=== PATIENT | male | born 1980 ===

== ENCOUNTER 2017-07-25 20:06 | Observation (INO) | payer OTHER ==
[2017-07-25] MEDS ORDERED: Adacel (T-DAP) 0.5 ML VIAL ONE (20:21)
[2017-07-25] MEDS ORDERED: ceFAZolin Sodium 1 GM VIAL ONE (20:21)
--- NOTE | 2017-07-25 20:58 | CT ---
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 FINDINGS: No focal mass or midline shift. No intra or extra-axial hemorrhage. Sinuses and mastoids are clear. IMPRESSION: No acute intracranial process. No mass or bleed. POS: [facility]
--- NOTE | 2017-07-25 21:02 | CT ---
CERVICAL SPINE CT SCAN WITHOUT IV CONTRAST: 07/26/17 HISTORY: 37-year-old male with neck injury following being struck with a steel cable. Multilevel disc osteophytosis changes are noted, particularly at C3-C4, C4-C5 and C5-C6 with some mu ltilevel variable severity canal and lateral recess stenosis, mostly mild to moderate. No evidence f or an acute fracture or facet dislocation. IMPRESSION: Cervical spondylosis. No acute fracture or facet dislocation. POS: [facility]
[2017-07-25] MEDS ORDERED: Lidocaine 1% (PF) 30 ML VIAL ONE (21:39)
--- NOTE | 2017-07-25 21:42 | CT ---
FACIAL BONE CT SCAN WITHOUT IV CONTRAST: 07/25/17 HISTORY: 37-year-old male with facial laceration from a steel cable. There are several small punctate foci of gas within the left neck soft tissues posterior to the left submaxillary gland and anterior and medial to the left sternocleidomastoid muscle. This is presumab ly from or associated with the history of laceration. There is some small jugulodigastric and submen kimani lymph nodes. There is some slight deformity of the right nasal bone which has more the appearanc e of an old fracture, although clinical correlation in regards to an acute fracture is suggested. Ra diographically, this appears more likely old with some mild residual deformity. No evidence of other acute facial bone fracture. The orbits appear unremarkable. The zygomatic arches are unremarkable. The mandible is intact. IMPRESSION: Subtle tiny punctate areas of gas or air in the left neck, presumably related to the history of a la ceration. Slight nasal bone deformity having more the appearance of old right sided nasal bone fract ure. There is some multiple small opacities which appear to overlie the face, lips, and nasal cavity . No evidence for soft tissue neck mass or abnormal fluid collection within the neck. POS: [facility]
[2017-07-25 21:48] LABS: #Basophils 0.1 thou/uL (0.0-0.2); #Eosinphils 0.2 thou/uL (0.0-0.7); #Lymphocytes 3.1 thou/uL (1.20-3.40); #Monocytes 0.7 thou/uL (0.11-0.59); #Neutrophils 7.2 thou/uL (1.40-6.50); %Basophils 0.8 % (0.0-1.0); %Eosinophils 1.6 % (0.0-10.0); %Lymphocytes 27.3 % (21.0-51.0); %Monocytes 6.4 % (0.0-10.0); Mean Platelet Volume 8.8 fL (7.4-10.4); Red Blood Cell (RBC) Count 4.84 mill/uL (4.70-6.10); White Blood Cell (WBC) Count 11.3 thou/uL (4.8-10.8)
[2017-07-25 21:56] LABS: Anion Gap 13 mmol/L (10-20); BUN (Urea Nitrogen) 18 mg/dL (8.9-20.6); Calc. Creatinine Clearance 0 mL/min (70-130); Calcium 8.8 mg/dL (7.8-10.44); Carbon Dioxide 24 mmol/L (22-29); Chloride 106 mmol/L (98-107); Estimated GFR-MDRD 58
--- NOTE | 2017-07-25 21:58 | RAD ---
RIGHT FEMUR TWO VIEWS: 07/25/17 HISTORY: 37-year-old male with trauma to right leg and right leg avulsion. There is some extensive soft tissue injury to the lateral aspect of the mid thigh. No acute fracture or dislocation of the femur. Numerous opacities overlie the superior and lateral aspect of the pelv is and right hip and right buttock. IMPRESSION: Extensive soft tissue injury to the anterolateral aspect of the right mid thigh. No fracture or disl ocation. Extensive opacities overlie the region to the lateral aspect of the right pelvis and right hip greater trochanteric region. POS: [facility]
[2017-07-25] MEDS ORDERED: Fentanyl 100 MCG/2 ML VIAL ONE (22:25)
[2017-07-25] MEDS ORDERED: Piperacillin/Tazobactam 3.375 GM VIAL ONE (22:29)
[2017-07-25] MEDS ORDERED: Succinylcholine Chloride 20 MG/ML 10 ml SYRINGE FS ONE (22:43)
[2017-07-25] MEDS ORDERED: Propofol 200 MG/20 ML VIAL ONE (22:43)
[2017-07-25] MEDS ORDERED: Ondansetron HCl/PF 4 MG/2 ML Vial ONE (22:43)
[2017-07-25] MEDS ORDERED: Ketorolac Tromethamine 30 MG/ML VIAL ONE (22:43)
[2017-07-25] MEDS ORDERED: Dexamethasone 20 MG/5 ML VIAL ONE (22:43)
[2017-07-25] MEDS ORDERED: Lidocaine 2% PF 10 ML AMP (For Epidural Use) ONE (22:43)
[2017-07-25] MEDS ORDERED: PHENYLEPHRINE-NS 100 MCG/ML 10 ML SYRINGE ONE ×2 (22:43)
[2017-07-25] MEDS ORDERED: Bupivacaine/Epinephrine 0.5% 10 ML VIAL ONE (22:59)
[2017-07-25] MEDS ORDERED: Dextrose 5% in Water 1,000 ML IV PRN (23:27)
[2017-07-25] MEDS ORDERED: Ondansetron ODT 4 MG TAB PO PRN (23:27)
[2017-07-25] MEDS ORDERED: Dextrose 50% Abboject 50 ML SYRINGE SLOW IVP PRN (23:27)
[2017-07-25] MEDS ORDERED: Ondansetron HCl/PF 4 MG/2 ML Vial IVP PRN ×2 (23:27→23:39)
[2017-07-25] MEDS ORDERED: traMADol HCl 50 MG TAB PO PRN ×2 (23:36)
[2017-07-25] MEDS ORDERED: HYDROcodone/Acetaminophen 5/325 mg Tablet PO PRN (23:36)
[2017-07-25] MEDS ORDERED: HYDROmorphone 2 MG/ML VIAL SLOW IVP PRN (23:39)
[2017-07-25] MEDS ORDERED: Promethazine HCl 25 MG/ML VIAL IM PRN (23:39)
[2017-07-25] MEDS ORDERED: Promethazine HCl 25 MG/ML VIAL SLOW IVP PRN (23:39)
[2017-07-26 00:51] VITALS: BMI 27.1
[2017-07-26] MEDS: Ibuprofen 800 MG TAB PO SCH ×2 (01:19→09:47)
[2017-07-26] MEDS: Acetaminophen 500 MG TAB PO SCH ×4 (01:25→13:19)
[2017-07-26] MEDS: Sodium Chloride 0.9% 1,000 ML IV SCH ×2 (03:49→11:34)
[2017-07-26] MEDS: Piperacillin/Tazobactam 3.375 GM in Sodium Chloride 0.9% 100 ML IVPB SCH ×2 (05:17→13:19)
[2017-07-26 06:04] LABS: #Lymphocytes 0.7 thou/uL (1.20-3.40); #Monocytes 0.3 thou/uL (0.11-0.59); #Neutrophils 12.1 thou/uL (1.40-6.50); %Basophils 0.2 % (0.0-1.0); %Eosinophils 0.2 % (0.0-10.0); %Lymphocytes 5.7 % (21.0-51.0); Hematocrit 43.2 % (42.0-52.0); Mean Platelet Volume 8.8 fL (7.4-10.4); Red Blood Cell (RBC) Count 4.62 mill/uL (4.70-6.10); White Blood Cell (WBC) Count 13.2 thou/uL (4.8-10.8)
[2017-07-26 06:19] LABS: Anion Gap 10 mmol/L (10-20); BUN (Urea Nitrogen) 17 mg/dL (8.9-20.6); Calc. Creatinine Clearance 98 mL/min (70-130); Calcium 8.8 mg/dL (7.8-10.44); Carbon Dioxide 26 mmol/L (22-29); Chloride 106 mmol/L (98-107); Estimated GFR-MDRD 65
--- NOTE | 2017-07-26 06:53 | HP ---
DATE OF ADMISSION: 07/25/2017 CHIEF COMPLAINT: Industrial accident involving a high tension wire. HISTORY OF PRESENT ILLNESS: The patient is a 37-year-old black male. He was involved in an acciden t at work earlier today. He has been seen here in the emergency by Dr. Bains and subsequently by CANDELARIA Mcdonald. History and physical examinations had already been performed by Mr. Caro. I have also performed a full history and physical examination on the patient. In summary, he has facial lacerations, and what appears to be an old right-sided nasal bone fracture . He has a large open laceration of his right anterior thigh with exposed muscle belly. Due to the size and the likely dirty nature of the wound, I have recommended washout in the operating room wit h a closure under anesthesia. I have discussed this with the patient as well as potential risks. H e understands and agrees to proceed with surgery.
[2017-07-26] MEDS ORDERED: Famotidine 20 MG TAB PO SCH (09:00)
--- NOTE | 2017-07-26 10:18 | HP-2 ---
DATE OF ADMISSION: 07/25/2017 LOCATION OF ADMISSION: [facility]. CODE: FULL CODE. 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 HISTORY OF PRESENT ILLNESS: Mr. 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 Patient presents reported having kamla n on his face and leg, able to move his upper extremity, he is able to move his lower extremities. He has a large open laceration into the muscle belly on his right thigh and he has a cut on his uppe r lip and abrasions on his forehead and along his nose as well from where the cable hit him. He den ies losing consciousness. Denies any dizziness or headache at this time. Just reports pain and rat es pain around a 7. He does report pain medicine is helping at this time. REVIEW OF SYSTEMS: All review of systems listed in HPI are negative at this time. PAST MEDICAL HISTORY: None. PAST SURGICAL HISTORY: None. ALLERGIES: No known drug allergies. MEDICATIONS: Taking none. FAMILY HISTORY: Insignificant. PHYSICAL EXAMINATION: VITAL SIGNS: Blood pressure was 138/77, pulse of 88, respirations 16, O2 sat was 99% on room air an d temperature was 98.5. HEENT: There is trauma to his head. There is a vertically oriented abrasion onto his mid forehead, abrasion in between his eyes on his nostril, shows ecchymosis to the left orbit. Sclerae are injec kathleen bilaterally. ENT: There is an avulsion to the apex of the nose, large abrasion to his top lip with a deep lacera tion. There is just noted some swelling on the left side of his face as well. NECK: Supple. Trachea is midline. No thyromegaly. No bruits. RESPIRATORY: Lungs are clear to auscultation. Symmetric chest expansion, nonlabored breathing. Th ere is no tenderness to palpation. CARDIOVASCULAR: Regular rate and rhythm. No murmurs or gallops noted. ABDOMEN: Nontender to palpation. No distention, no masses. Bowel sounds heard in all 4 quadrants bilaterally. BACK: Normal. No tenderness to palpation along with spine. MUSCULOSKELETAL: Able to move his upper extremities, able to move his lower extremities. There is a laceration of the right mid thigh about 13 cm long. There is injury to the muscle belly grossly c ontaminated with dirt. NEUROLOGIC: Lorie Coma scale of 15. The patient is alert and oriented x3. No focal neuro defici ts noted. PSYCHIATRIC: The patient is alert and oriented and affect is appropriate. LABORATORY DATA AND IMAGING: White blood cell count of 11.3, hemoglobin of 15.1, hematocrit of 45.0 , platelet count of 104. Sodium is 140, potassium is 3.4, chloride of 106, carbon dioxide 24, anion gap 13, BUN of 18, creatinine of 1.38, glucose of 112, calcium of 8.8. Femur x-ray 07/25/2017, imp ression is extensive soft tissue injury to the anterolateral aspect of the right mid-thigh. No frac ture or dislocation. Extensive opacities overlie the region to the lateral aspect of the right pelv is and the right hip greater trochanteric region. Brain CT, no acute intracranial process. No mass or bleed. Facial bone CT, impression is subtle tiny punctate areas of gas or air in the left neck, presumably related to history of a laceration. Slight nasal bone deformity having more appearance of old right-sided nasal bone fracture, there are some multiple small opacities, which appear to ove rlie the face, lips, and nasal cavity. No evidence of soft tissue neck mass or abnormal fluid colle ction within the neck and then cervical spine CT showed cervical spondylosis. No acute fracture or facet dislocation. ASSESSMENT AND PLAN: 1. Deep dirty laceration to the muscle of the right thigh. 2. Acute traumatic pain. 3. Multiple lacerations and contusions. The patient will be admitted debridement and cleaning of his right thigh wound, possible contaminati on of steel from the steel cable and the wound might need some debridement and to be repaired. We w ill continue to put patient on trauma pain protocol. We will manage pain accordingly. We will get monitor vital signs and check labs accordingly and treat as needed. Patient had a laceration in bet ween his nose and above his lips, which was repaired with 4 stitches. We will continue to monitor t hat as well. This patient was seen with the Trauma, Abdifatah Caro PA-C. Plan was discussed with Abdifatah Caro PA-C.
[2017-07-26 12:18] VITALS: BP 117/69; TEMP 98.2
--- NOTE | 2017-07-26 17:54 | CON ---
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 The patient denies loss of consciousness, no di zziness, headache, no vision changes, or facial complaints reported. Oral Surgery consulted due to nasal bone fracture seen on CT scan. REVIEW OF SYSTEMS: Within normal limits. PAST MEDICAL HISTORY: None. PAST SURGICAL HISTORY: None. ALLERGIES: No known drug allergies. MEDICATIONS: None. FAMILY HISTORY: Noncontributory. PHYSICAL EXAMINATION: VITAL SIGNS: Stable. Afebrile. GENERAL: Awake, alert, oriented x3, in no acute distress. The patient is lying in bed comfortably. HEENT: Head is normocephalic. Face, generalized abrasion across the forehead. There is abrasion a cross the superior nasal bridge with a minor wound. No exposed bone or cartilage. The nasal bridge is symmetrical, no palpable crepitus, steps, septum midline. No septal hematoma, patent, air flow in bilateral nares. No steps along the orbital rims. Eyes: Pupils are equal, round and react to light. Extraocular movements are intact. Maximum interincisal opening and TMJ within normal li mits. Occlusion is stable and repeatable. IMAGING: CT of the face reveals a very minimally displaced right nasal bone fracture. No disruptio n of the nasal septum. No bleeding or fluid seen within the sinuses or nasal cavity. ASSESSMENT: A 37-year-old male status post work injury with minimally displaced nasal bone fracture . PLAN: No surgical intervention is indicated for this fracture, facial wound care discussed with the patient. He can follow up in our clinic on an as needed basis. Call [phone] for appointment or q uestions or concerns or worrisome symptoms regarding facial injuries.
--- NOTE | 2017-07-26 23:57 | DIS ---
DATE OF ADMISSION: 07/25/2017 DATE OF DISCHARGE: 07/26/2017 FINAL DIAGNOSES: 1. Status post industrial accident with cable striking the patient, concussion. 2. Nasal bone fracture. 3. Facial lacerations and abrasions. 4. Large deep laceration, contusion to the right thigh. BRIEF ADMISSION HISTORY AND PHYSICAL EXAM FINDINGS: This is a 37-year-old male status post industri al accident, had some facial laceration, right-sided nasal bone fracture, large open laceration of h is right anterior thigh with exposed muscle belly. Due to the size and the likely dirty nature of t he wound, it was recommended washout and closure under anesthesia in the operating room. Patient consented to this hospital course. HOSPITAL COURSE: The patient postoperatively was doing well. He has been ambulating, tolerating a regular diet, urinating fine. No complaints of pain. The wound looks clean and dry some serosangui neous drainage from the [place] drain on the right and facial lacerations look clean and dry, advise use of bacitracin. DISCHARGE MEDICATIONS: Keflex 500 mg b.i.d. x5 days as well as Ultram 50 mg 1-2 tabs q.6 hours p.r. n. pain. Continue alternate Tylenol and Motrin for mild pain. The patient was be transported back to [place] by his employer. At this time, we have advised h im to find a surgeon for 1 week followup for evaluation of the [place] drain on the right thigh as w ell as oral maxillary facial surgeon or another provider to take out the facial sutures in 5-7 days. The patient was agreeable to the above findings and was happy to be discharged today. The patient 's disposition is home with family support and condition is good. The patient was cleared by Dr. Norman as well as Dr. Payne at the time of the dictation. This is merely a trauma discharge summary, please refer to the chart for further information.
--- NOTE | 2017-07-29 11:21 | OP ---
DATE OF PROCEDURE: 07/25/2017 PREOPERATIVE DIAGNOSIS: Large deep laceration to anterior right thigh. POSTOPERATIVE DIAGNOSIS: Large deep laceration to anterior right thigh. OPERATION PERFORMED: Exploration and washout of a large right thigh wound/laceration with control o f hemorrhage, complex closure of the deep 13 cm thigh laceration with placement of [place] drain. SURGEON: Elie Powell M.D. ANESTHESIA: General endotracheal. INDICATIONS: The patient is a 37-year-old black male. He presented after an accident and his work involved in a high tension cable that led to an injury of his right thigh. This laceration was gómez sverse on the anterior aspect and was about 13 cm transversely. It was deep and seemed to extend do wn towards the bone. He is taken to the operating room at this time for a washout and closure under anesthesia. OPERATIVE PROCEDURE IN DETAIL: Informed consent was obtained. The patient was taken to the operati ng room where general anesthesia obtained with the patient in supine position. Right leg was preppe d with Betadine, draped in sterile fashion. Local anesthetic was infiltrated using 0.25% Marcaine w ith epinephrine. The wound was vigorously irrigated using the Pulsavac device using over 2 liters o f irrigant on the skin, subcutaneous tissue, and deep muscle layers. It was assumed that the wound was contaminated as a dirty industrial cable had caused the injury through his clothing. Bleeding m uscular fibers were identified and cauterized. A couple of small vessels that had retracted within the muscle were identified and ligated with 3-0 silk. The fascia of the anterior muscle was then cl osed with interrupted sutures of 2-0 Vicryl. A [place] drain was placed into the depths of the woun d. It was secured to the skin with a 3-0 nylon suture. The remainder of the skin was then closed u sing interrupted sutures of 2-0 Prolene, most of which was placed with simple interrupted fashion, b ut some of which were placed using vertical mattress sutures. There were no complications. All tis sues were viable for closure. Blood loss was minimal during the operation. Sterile gauze dressing was applied. There were no complications. Patient tolerated the procedure well and was taken to re covery in stable condition.
== END 2017-07-26 16:46 | disposition home or self-care (01) ==
LOC: ERS 20:06 → SDC 22:37 → SJJU 23:56
PROVIDERS: ADMIT Specialist; ATTEND Specialist
DX: S02.2XXA Fracture of nasal bones, initial encounter for closed fracture (principal); S71.111A Laceration without foreign body, right thigh, initial encounter; S01.511A Laceration without foreign body of lip, initial encounter; S00.81XA Abrasion of other part of head, initial encounter; W22.8XXA Striking against or struck by other objects, initial encounter; Y92.69 Other specified industrial and construction area as the place of occurrence of the external cause; Y99.0 Civilian activity done for income or pay
CPT/HCPCS: 12011; 36415; 70450; 70486; 72125; 80048; 85025; 90471; 90715; 96361; 96365; 96366; 96374; 96375; 99292; G0378; G0390; J0690; J1100; J1170; J1885; J2001; J2270; J2405; J2543; J2704; J3010; J3490; J7050